=== PATIENT | female | born 1960 | race Caucasian/White ===

== ENCOUNTER → 2016-08-22 | Outpatient (CLI) | payer BC ==
[~2016-08-22] MED LIST: AMLO5TAB2 PO; ATEN25TA PO; ATOR40TA64 PO; LISI-126 PO; METF500T4 PO; NITR0.4T PO; PIOG30TA27 PO
== END ==
LOC: WC.BC 08:20
DX: Z12.31 Encounter for screening mammogram for malignant neoplasm of breast (principal); N64.59 Other signs and symptoms in breast
CPT/HCPCS: 77063; G0202